=== PATIENT | female | born 1945 | race Caucasian/White ===

== ENCOUNTER 2016-05-18 02:09 | Emergency (ER) | payer OTHER ==
[~2016-05-18] VITALS: Ht 152.4 cm; Wt 79.5 kg
[2016-05-18 02:15] VITALS: BP 155/89; PULSE 84; RESP 16; TEMP 98.9; O2SAT 98
[2016-05-18] MEDS ORDERED: HYDR25TA5 PO (02:31)
[2016-05-18] MEDS ORDERED: ROSU10 PO (02:31)
[2016-05-18] MEDS ORDERED: CINN500T PO (02:31)
[2016-05-18] MEDS ORDERED: VITA400C2 PO (02:31)
[2016-05-18] MEDS ORDERED: CO Q200C PO (02:31)
[2016-05-18] MEDS ORDERED: POTA-163 PO (02:31)
[2016-05-18] MEDS ORDERED: ASPI1TAB69 PO (02:31)
[2016-05-18] MEDS ORDERED: FISHCAP4 PO (02:31)
[2016-05-18] MEDS ORDERED: CALC1TAB12 PO (02:31)
[2016-05-18] MEDS ORDERED: GLUC500T4 PO (02:31)
[2016-05-18] MEDS ORDERED: LIDOCAINE HCL 1% 50 ML VIAL INFIL ONE (02:45)
--- NOTE | 2016-05-18 02:48 | PD ---
HPI Chief Complaint: Skin Problem Time Seen by Provider: 02:35 Travel History International Travel<30 days: Yes Contact w/Intl Traveler<30days: [place] Country Traveled to: [facility] AND [facility] Traveled to known affect area: No History of Present Illness HPI 70-year-old female presents to the emergency department by private transportation for complaint of mid back pain with area of soft tissue swelling with reproducible tenderness and worsened with palpation lying on her back and with movement. Patient states she has had previous abscess drainage and cyst excision in the past. Patient states that this is recurrent noticed just today. Patient rates pain with palpation or touching the area as severe. Patient denies being diabetic. Patient denies any injury. No other associated fever chills nausea vomiting chest pain shortness of breath or abdominal pain. Patient does have history of rheumatoid arthritis and is presently not taking any immunosuppressive medications. PFSH Past Medical History Narrative Medical Rheumatoid arthritis sebaceous cyst excision GERD headache hypertension dyslipidemia right oophorectomy no tobacco use nursing notes reviewed Arthritis: Yes Asthma: No Autoimmune Disease: No Blood Disorders: No Anxiety: No Depression: No Heart Rhythm Problems: No Cancer: No High Cholesterol: No Chemotherapy: No Chest Pain: No Congestive Heart Failure: No COPD: No Cerebrovascular Accident: No Diabetes: No GERD: Yes Glaucoma: No Headaches: Yes Hepatitis: No Hiatal Hernia: No Hypertension: Yes Kidney Stones: No Myocardial Infarction: No Radiation Therapy: No Renal Failure: No Seizures: No Sickle Cell Disease: No Sleep Apnea: No Thyroid Disease: No Ulcer: No Past Surgical History AICD: No Gynecologic Surgery: Yes (C SECTION R OVARY REMOVAL) Pacemaker: No Social History Alcohol Use: No Tobacco Use: No Substance Use: No Allergies-Medications (Allergen,Severity, Reaction): Coded Allergies: HMG-CoA Reductase Inhibitors (Verified Allergy, Severe, Cramping, 05/18/16) MUSCLE CRAMPS AND ACHING Methotrexate (Verified Allergy, Severe, 05/18/16) Penicillin (Verified Allergy, Severe, 05/18/16) Lisinopril (Verified Allergy, Intermediate, Itching, 05/18/16) ITCHING AND COUGHING Uncoded Allergies: ASPERTAME (Allergy, Severe, TONGUE SWELLING, 03/21/04) Reported Meds & Prescriptions Reported Meds & Active Scripts Active Reported Cinnamon 500 Mg Tab 1,000 Mg PO DAILY Co Q-10 (Coenzyme Q10 (Ubidecarenone)) 200 Mg Cap 1 Cap PO DAILY Fish Oil + D3 (Fish Oil-Cholecalciferol) 1,200-1,000 Mg-Unit Cap 1 Cap PO DAILY Potassium Chloride ER (Potassium Chloride) 20 Meq Tab 20 Meq PO DAILY Vitamin E 400 Unit Cap 400 Units PO DAILY Aspirin 81 Mg Tabdr 81 Mg PO DAILY Calcium 500 +D (Calcium Carbonate-Cholecalciferol) 500-400 Mg-Unit Tab 1 Tab PO DAILY Glucosamine-Chondroitin 500-400 Mg Tab 2 Tab PO DAILY Crestor (Rosuvastatin Calcium) 10 Mg Tab 10 Mg PO HS Hydrochlorothiazide 25 Mg Tab 25 Mg PO DAILY Review of Systems Except as stated in HPI: all other systems reviewed are Neg Physical Exam Narrative GENERAL: Well-developed well-nourished female in no acute distress no respiratory distress SKIN: Warm and dry. Midline overlying the mid thoracic spine is the area of induration erythema tenderness with central blackhead/sebum tender to palpation with erythema increased warmth tenderness induration and mild central fluctuance. HEAD: Normocephalic. EYES: No scleral icterus. No injection or drainage. NECK: Supple, trachea midline. No JVD or lymphadenopathy. CARDIOVASCULAR: Regular rate and rhythm without murmurs, gallops, or rubs. RESPIRATORY: Breath sounds equal bilaterally. No accessory muscle use. GASTROINTESTINAL: Abdomen soft, non-tender, nondistended. MUSCULOSKELETAL: No cyanosis, or edema. BACK: Nontender without obvious deformity. No CVA tenderness. Data Data Last Documented VS Vital Signs Date Time Temp Pulse Resp B/P Pulse Ox O2 Delivery O2 Flow Rate FiO2 05/18/16 02:15 98.9 84 16 155/89 98 Room Air Orders Lidocaine 1% Inj (50 Ml) (Xylocaine 1% I (05/18/16 02:45) MDM Medical Decision Making Medical Screen Exam Complete: Yes Emergency Medical Condition: Yes Medical Record Reviewed: Yes Differential Diagnosis Cellulitis abscess sebaceous cyst mass Narrative Course Patient presents with sebaceous cyst overlying the mid-level thoracic spine with central cord and tenderness with induration and warmth to palpation; no spontaneous drainage. Patient is aware of area of skin infection inflammation consistent with cellulitis overlying a sebaceous cyst with increasing swelling according to the patient since last evening. As area does have central fluctuance will attempt incision and drainage. After informed verbal consent. Patient's back was cleansed with Betadine 1% lidocaine plain was used to provide local anesthetic and 11 blade was used to perform incision. Procedures Procedure Narrative After the risks and benefits were discussed the following procedure was performed: INCISION AND DRAINAGE OF ABSCESS: The area was prepped and was sterilely draped. A subcutaneous wheal of 1 % Xylocaine with a total number 2 mL was used to anesthetize the area. The area was properly anesthetized. A number 11 scalpel was used to make a 1.5 -cm incision across the area of the abscess. Cultures were obtained. The abscess was drained an irrigated with normal saline. Quarter inch iodoform packing was placed in the wound. Sterile dressing applied. Patient advised to have packing removed in two days. Diagnosis Primary Impression: Abscess of upper back excluding scapular region Additional Impressions: Sebaceous cyst Encounter for incision and drainage procedure Referrals: Primary Care Physician 2 days Patient Instructions: General Instructions Additional Instructions: Packing removal in 2 days Complete course of antibiotic as prescribed Follow-up with primary care physician Return to the emergency department for any concerns or change in condition or for packing removal in 2 days May use ibuprofen/Advil/Motrin as often as every 6-8 hours for pain associated with inflammation Complete course of antibiotic as prescribed Take acetaminophen/Tylenol as needed for fever 100.4F or greater May take prescription pain medication as prescribed as needed for pain greater than 5/10 in intensity--be aware that narcotic pain medication may impair judgment, delay reaction time, increased risk for fall, and/or cause constipation Med/Other Pt SpecificInfo: Prescription(s) given Scripts Hydrocodone-Acetaminophen (Lortab)5-325 Mg Tab1 Tab PO Q6H PRN (PAIN GREATER THAN 5) #7 TAB Ref 0 Prov:Neena Mortensen MD 05/18/16 Clindamycin 150 Mg [id number] Mg PO Q6H 7 Days Ref 0 Prov:Neena Mortensen MD 05/18/16 Disposition: 01 DISCHARGE HOME Condition: Stable Neena Mortensen MD May 18, 2016 02:48
[2016-05-18] MEDS ORDERED: HYDR-3533 PO (03:38)
[2016-05-18] MEDS ORDERED: CLIN1CAP5 PO (03:38)
[2016-05-18] MEDS ORDERED: IBUPROFEN 600 MG TAB PO ONE (03:45)
[2016-05-18] MEDS ORDERED: CLINDAMYCIN 150 MG CAP PO ONE (03:45)
== END 2016-05-18 03:57 | disposition home or self-care (01) ==
LOC: PHED 02:09
DX: L02.212 Cutaneous abscess of back [any part, except buttock and flank] (principal); L72.3 Sebaceous cyst
CPT/HCPCS: 10061; 87070; 87205